=== PATIENT | female | born 1970 | race Caucasian/White ===

== ENCOUNTER 2017-03-03 15:53 | Emergency (ER) | payer SELFPAY ==
[2017-03-03] MEDS ORDERED: PREDNISONE 20 MG TABLET PO ONE ×2 (16:12→18:39)
[2017-03-03] MEDS ORDERED: ALBUTEROL SULFATE 0.083% NEB 2.5 MG/3 ML AMPUL NEB ONE ×2 (16:12→18:40)
--- NOTE | 2017-03-03 16:14 | ER Document Report ---
ED Medical Screen (RME) - General Chief Complaint: Breathing Difficulty Stated Complaint: DIFFICULTY BREATHING Time Seen by Provider: 03/03/17 16:11 Notes: Patient reports several days of increasing shortness of breath and a nonproductive cough. She denies any pain. She states she does not wear home oxygen. She states she has been using her inhalers but recently ran out. TRAVEL OUTSIDE OF THE [place] IN LAST 30 DAYS: No - Related Data Allergies/Adverse Reactions: No Known Allergies Allergy (Unverified 03/03/17 15:54) Past Medical History - Social History Frequency of alcohol use: None Drug Abuse: None Renal/ Medical History: Denies: Hx Peritoneal Dialysis Physical Exam - Vital signs Vitals: Temp Pulse Resp BP Pulse Ox 97.9 F 104 H 32 H 176/88 H 97 03/03/17 15:59 03/03/17 15:59 03/03/17 15:59 03/03/17 15:59 03/03/17 15:59 Course - Vital Signs Vital signs: Temp Pulse Resp BP Pulse Ox 97.9 F 104 H 32 H 176/88 H 97 03/03/17 15:59 03/03/17 15:59 03/03/17 15:59 03/03/17 15:59 03/03/17 15:59
[2017-03-03 16:31] LABS: ABSOLUTE BASOPHILS # (AUTO) 0.1 10^3/uL (0.0-0.2); ABSOLUTE EOSINOPHILS # (AUTO) 0.3 10^3/uL (0.0-0.6); ABSOLUTE LYMPHOCYTES (AUTO) 2.7 10^3/uL (0.5-4.7); ABSOLUTE MONOCYTES (AUTO) 0.9 10^3/uL (0.1-1.4); ABSOLUTE NEUT (AUTO) 9.3 10^3/uL (1.7-8.2); BASOPHILS % (AUTO) 0.9 % (0-2); EOSINOPHILS % (AUTO) 2.1 % (0-6); HEMATOCRIT 40.2 % (36.0-47.0); HEMOGLOBIN 12.9 g/dL (12.0-15.5); HGB HCT DIFFERENCE -1.5; LYMPHOCYTES % (AUTO) 20.5 % (13-45); MEAN CORPUSCULAR HEMOGLOBIN 24.2 pg (27.0-33.4); MEAN CORPUSCULAR HGB CONC 32.1 g/dL (32.0-36.0); MEAN CORPUSCULAR VOLUME 75 fl (80-97); MONOCYTES % (AUTO) 7.1 % (3-13); RED BLOOD COUNT 5.33 10^6/uL (3.72-5.28); SEGMENTED NEUTROPHILS % (AUTO) 69.4 % (42-78); WHITE BLOOD COUNT 13.4 10^3/uL (4.0-10.5)
[2017-03-03 16:49] LABS: ALANINE AMINOTRANSFERASE 32 U/L (9-52); ALBUMIN 3.9 g/dL (3.5-5.0); ALKALINE PHOSPHATASE 128 U/L (38-126); ANION GAP 11 (5-19); ASPARTATE AMINO TRANSFERASE 21 U/L (14-36); BILIRUBIN,DIRECT 0.4 mg/dL (0.0-0.4); BILIRUBIN,TOTAL 0.4 mg/dL (0.2-1.3); BLOOD UREA NITROGEN 15 mg/dL (7-20); CALCIUM 9.7 mg/dL (8.4-10.2); CARBON DIOXIDE 26 mmol/L (22-30); CHLORIDE 103 mmol/L (98-107); CREATININE RESULT 0.67 mg/dL (0.52-1.25); GLUCOSE 119 mg/dL (75-110); POTASSIUM 4.6 mmol/L (3.6-5.0); SODIUM 139.8 mmol/L (137-145); TOTAL PROTEIN 7.2 g/dL (6.3-8.2)
--- NOTE | 2017-03-03 16:57 | RADIOLOGY REPORT (SQ) ---
EXAM DESCRIPTION: CHEST PA/LAT COMPLETED DATE/TIME: 03/03/2017 4:26 pm REASON FOR STUDY: cough/sob COMPARISON: None. NUMBER OF VIEWS: Two view. TECHNIQUE: Frontal and lateral radiographic views of the chest acquired. LIMITATIONS: None. FINDINGS: LUNGS AND PLEURA: No opacities, masses or pneumothorax. No pleural effusion. MEDIASTINUM AND HILAR STRUCTURES: No masses or contour abnormalities. HEART AND VASCULATURE: Heart normal size. No evidence for failure. BONY STRUCTURES: No acute findings. HARDWARE: None. OTHER: No other significant finding. IMPRESSION: NO SIGNIFICANT RADIOGRAPHIC FINDING IN THE CHEST. TECHNICAL DOCUMENTATION: JOB ID: [id number] [employer]- All Rights Reserved
[2017-03-03] MEDS ORDERED: IPRATROPIUM/ALBUTEROL 0.5-2.5 MG/3 ML AMPUL NEB ONE (18:38)
--- NOTE | 2017-03-03 18:58 | ER Document Report ---
ED Respiratory Problem - General Chief Complaint: Breathing Difficulty Stated Complaint: DIFFICULTY BREATHING Time Seen by Provider: 03/03/17 16:11 Notes: Patient says she has had difficulty breathing since yesterday. She has a cough but is not producing much sputum. Her only medications for her breathing condition is an albuterol inhaler which ran out this morning and Spiriva inhaler. She says that she has been diagnosed as COPD and had difficulty breathing over the last 12 years. Has not noted a fever. Patient is a former cigarette smoker, stopped about 5 years ago. Says that she used to be also be on Alfonso (theophylline) when she lived in [place], but has not found a doctor here who can prescribe it. Patient tells me that she is alpha-1 antitrypsin deficient. TRAVEL OUTSIDE OF THE [place] IN LAST 30 DAYS: No - Related Data Allergies/Adverse Reactions: No Known Allergies Allergy (Unverified 03/03/17 15:54) Past Medical History - Social History Smoking Status: Former Smoker Frequency of alcohol use: None Drug Abuse: None Family History: Reviewed & Not Pertinent Patient has suicidal ideation: No Patient has homicidal ideation: No - Past Medical History Cardiac Medical History: Reports: Hx Hypertension Denies: Hx Congestive Heart Failure, Hx Coronary Artery Disease, Hx Heart Attack Pulmonary Medical History: Reports: Hx Asthma, Hx COPD Endocrine Medical History: Reports: Hx Diabetes Mellitus Type 2 Past Surgical History: Reports: Hx Orthopedic Surgery - Carpal tunnel surgery., Hx Tubal Ligation Review of Systems - Review of Systems Notes: REVIEW OF SYSTEMS: CONSTITUTIONAL : Denies fever. EENT: Denies eye, ear, nose or mouth or throat pain or other symptoms. CARDIOVASCULAR: Denies chest pain. RESPIRATORY: See HPI. GASTROINTESTINAL: Denies abdominal pain or nausea, vomiting, or diarrhea. GENITOURINARY: Denies difficulty or painful urinating, urinary frequency, blood in urine. MUSCULOSKELETAL: Denies back or neck pain. Denies joint pain or swelling. SKIN: Denies rash or skin lesions. NEUROLOGICAL: Denies LOC or altered mental status. Denies headache. Denies sensory loss or motor deficits. ALL OTHER SYSTEMS REVIEWED AND NEGATIVE. Physical Exam - Vital signs Vitals: Temp Pulse Resp BP Pulse Ox 97.9 F 104 H 32 H 176/88 H 97 03/03/17 15:59 03/03/17 15:59 03/03/17 15:59 03/03/17 15:59 03/03/17 15:59 Interpretation: Tachypneic - Mild. No: Hypoxic, Febrile - Notes Notes: PHYSICAL EXAMINATION: GENERAL: Well-appearing, in no acute distress. Audible wheezes to the naked examiner's ear. However, good air exchange occurring and no hypoxia. HEAD: Atraumatic, normocephalic. NECK: Normal range of motion, supple. LUNGS: Good breath sounds bilaterally. A few scattered expiratory wheezes are heard in both lung [place].. HEART: Regular rate and rhythm without murmurs. ABDOMEN: Soft, nontender. No guarding or rebound. Weighs 169 kg. BACK: No tenderness throughout entire back. EXTREMITIES: Normal range of motion without pain. No pretibial pitting edema. NEUROLOGICAL: Normal speech, normal gait. Normal sensory, motor, and reflex exams. Awake, alert, and oriented x3. Cranial nerves normal. PSYCH: Normal mood, normal affect. SKIN: Warm, dry, no rashes. Course - Re-evaluation Re-evalutation: 03/03/17 19:36 Patient is breathing much better after another neb of albuterol. That makes total of 3 nebs here and she is moving air well with some fine expiratory wheezes terminally. She does not have money for medications on going to give her an albuterol inhaler. I will give her prescription for some prednisone and for her home nebulizer and hopefully she can find a way to get them filled. - Vital Signs Vital signs: Temp Pulse Resp BP Pulse Ox 97.9 F 104 H 32 H 176/88 H 97 03/03/17 15:59 03/03/17 15:59 03/03/17 15:59 03/03/17 15:59 03/03/17 15:59 - Laboratory Result Diagrams: 03/03/17 16:20 03/03/17 16:20 Laboratory results interpreted by me: 03/03/17 03/03/17 16:20 16:20 WBC 13.4 H RBC 5.33 H MCV 75 L MCH 24.2 L RDW 17.0 H Absolute Neutrophils 9.3 H Glucose 119 H Alkaline Phosphatase 128 H Discharge - Discharge Clinical Impression: COPD exacerbation Condition: Stable Disposition: HOME, SELF-CARE Additional Instructions: Chronic Obstructive Lung Disease You have chronic obstructive lung disease (COPD). The symptoms come from emphysema (damage to small airways, with trapping of air in large sacks in the lung) and chronic bronchitis (repeated infection and damage to larger airways). The cause is almost always cigarette smoking, although dust exposure, asthma, and infections contribute. You should avoid fumes, dust, and smoke (especially tobacco smoke). Your condition will flare from time to time. There is no cure, but the symptoms can be treated. Bronchodilators (asthma medicine) are often helpful. Antibiotics help when infection is present. When shortness of breath is severe, we may prescribe cortisone medication. If medicine doesn't help enough, we can arrange for you to have an oxygen tank at home. Notify your doctor at once if sputum becomes thick, foul, or bloody, if you develop a fever or chest pain, or if your shortness of breath worsens. ASTHMA: You have been diagnosed as having asthma. This is a condition where there is episodic tightness in the bronchial tubes. Allergies, infections, and polluted or cold air may be contributing factors. Emergency treatment of a severe asthma attack may include adrenaline shots , or bronchodilator aerosol. You may feel lightheaded, have a decreased exercise tolerance and a rapid pulse for an hour or two. Rest and get plenty of fluids. Home treatment of asthma requires bronchodilator drugs. These can be administered by injection, inhalation, or by mouth. Antibiotics and corticosteroids may be required for some patients. You should avoid chemical fumes, dusts, pollens, and exercising in very cold or dry air. If you smoke, stop!! If you develop a fever, increased wheezing, chest pain, or severe shortness of breath, you should contact the doctor immediately. STEROID MEDICATION: You have been given an oral medicine of the cortisone/steroid class. This medication is used to control inflammation or allergy. Theodore t is usually only given for a short period of time, until the acute process subsides. There are usually no side effects from short-term use of cortisone-like medications. Some persons feel an increased sense of well-being and are not sleepy at bedtime. Long-term use of cortisone medications is best avoided, unless required for a severe condition. If your condition does not remit, or relapses after the course of corticosteroid medication, you should consult your physician. INHALED BRONCHODILATORS: You have received treatment(s) of and/or prescription for an inhaled bronchodilator -- a medication which stimulates the airways in the lung to dilate. This improves the flow of air in asthma, bronchitis, and emphysema. These medicines have some similarity to adrenaline, and can cause similar side effects: shakiness, racing heart, and a sense of nervousness. These side effects decrease with time. Contact your doctor if these side effects are severe. Do not over-use the medicine. Too-frequent use of the inhaler may make it ineffective. Call your doctor if the inhaler is not controlling your symptoms at the prescribed doses. FOLLOW-UP CARE: If you have been referred to a physician for follow-up care, call the physician s office for an appointment as you were instructed or within the next two days. If you experience worsening or a significant change in your symptoms, notify the physician immediately or return to the Emergency Department at any time for re-evaluation. Prescriptions: Albuterol Sulfate [Ventolin 0.083% Neb 2.5 mg/3 mL Ampul] 1 vial NEB Q4HP PRN # 25 vial PRN Reason: Prednisone [Deltasone 10 mg Tablet] 10 mg PO ASDIR PRN #36 tablet PRN Reason: Referrals: [facility] [Provider Group] - Follow up as needed
[2017-03-03] MEDS ORDERED: ALBUTEROL SULFATE HFA (90 MCG/PUFF) 8 GM MDI (1 MDI/ER DISP) IH PRN (19:34)
[2017-03-03 20:31] VITALS: BP 185/103
== END 2017-03-03 20:09 | disposition home or self-care (01) ==
LOC: ER 15:53
DX: J44.1 Chronic obstructive pulmonary disease with (acute) exacerbation (principal); E88.01 Alpha-1-antitrypsin deficiency; R05 Cough; I10 Essential (primary) hypertension; Z87.891 Personal history of nicotine dependence; E11.9 Type 2 diabetes mellitus without complications
CPT/HCPCS: 94640 ×2; 99285; 36415; 85025; 80053; 71020; J7512; J3490; J7620

== ENCOUNTER → 2017-03-31 | Outpatient (CLI) | payer OTHER ==
[2017-03-31 09:28] LABS: CHOLESTEROL 152.08 mg/dL (0-200); Direct HDL 28 mg/dL (>40); TRIGLYCERIDES 113 mg/dL (<150)
[2017-03-31 09:39] LABS: DIRECT LDL 102 mg/dL (<100)
== END ==
LOC: CCC 08:09
DX: J44.9 Chronic obstructive pulmonary disease, unspecified (principal)
CPT/HCPCS: 36415; 80061; 82043; 83036; 84443